=== PATIENT | female | born 1930 | race Caucasian/White ===

== ENCOUNTER 2016-07-15 07:06 | Observation (INO) | payer MEDICARE, BC ==
[2016-07-15] MEDS ORDERED: IOPAMIDOL 300 (61%) 100 ML VIAL IV ONE (07:07)
[2016-07-15 07:42] LABS: URINE BILIRUBIN NEGATIVE (NEGATIVE); URINE BLOOD NEGATIVE (NEGATIVE); URINE GLUCOSE (UA) NEGATIVE (NEGATIVE); URINE LEUKOCYTE ESTERASE NEGATIVE (NEGATIVE); URINE NITRITE NEGATIVE (NEGATIVE); URINE PROTEIN NEGATIVE (NEGATIVE); URINE UROBILINOGEN NORMAL (0-1 mg/dl)
[2016-07-15 07:43] LABS: URINE APPEARANCE CLEAR; URINE COLOR YELLOW
[2016-07-15 08:33] LABS: ABSOLUTE NEUTROPHIL COUNT 4.6 K/mm3 (1.8-7.7); BASO % 0.2 % (0.2-1.0); EOS # 0.1 (0.0-0.5); EOS % 0.9 % (0.9-2.9); HEMATOCRIT 43.2 % (37.0-47.0); HEMOGLOBIN 14.9 gm/l (12.0-16.0); IMM NEUT% 0.4 % (0-1); LYMPH # 0.5 (1.0-4.8); LYMPH % 8.5 % (15-45); MEAN CELL VOLUME 88.2 fl (81.0-99.0); MEAN CORPUSCULAR HEMOGLOBIN 30.4 pg (27.0-31.0); MEAN CORPUSCULAR HGB CONC 34.5 g/dl (33.0-37.0); MEAN PLATELET VOLUME 9.5 fl (7.4-10.4); MONO # 0.4 (0.0-0.8); MONO % 7.6 % (4-12); NEUT % 82.4 % (43-75); PLATELET COUNT 226 K/mm3 (130-400); RED CELL DISTRIBUTION WIDTH 14.1 % (11.5-14.5)
--- NOTE | 2016-07-15 09:53 | CT ---
CT ABDOMEN AND PELVIS WITH CONTRAST HISTORY: Back and abdominal pain. TECHNIQUE: Following intravenous administration of 100 mL Isovue-300, contiguous axial images were acquired from the lung bases to the ischial tuberosities. Oral contrast was not administered. COMPARISON: 06/12/2005 FINDINGS: LUNG BASES: Small right pleural effusion with right basal fibrotic atelectatic change. HEART: Cardiomegaly, evidence of pacer placement. LIVER: Mildly lobulated contour without dominant enhancing lesion. 7 mm cystic focus anteriorly. SPLEEN: Small calcification compatible with prior granulomatous exposure. 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 Borderline prominence of pancreatic duct. ADRENAL GLANDS: Redemonstration of left adrenal nodule measuring 1.4 cm in size, unchanged. KIDNEYS: Apparent solid mass lesion of the right kidney with heterogeneous enhancement 3.0 x 2.4 x 2.8 cm, worrisome for renal cell carcinoma. Right-sided pelviectasis without ureteral dilatation. GALLBLADDER: Present, minor wall enhancement. BOWEL: Moderately extensive fecal loading. Descending and sigmoid colonic diverticulosis without diverticulitis. No gross small bowel dilatation. Nonspecific mild diffuse mesenteric edema. APPENDIX: Normal gas-filled appendix. PELVIC ORGANS: No gross mass effect. FREE FLUID: No gross free fluid identified. ABDOMINOPELVIC LYMPH NODES: No abnormally enlarged lymph nodes identified. ABDOMINAL AORTA: Moderate atherosclerotic calcifications of the aortoiliac tree without aneurysmal dilatation. OSSEOUS STRUCTURES: Gression of compression deformity at the L2 level compared to plain film series of 06/25/2016, now moderately severe. There is mild retropulsion of the posterior-superior corner and moderate canal stenosis at this level. Findings of lumbar spondylosis with moderate canal stenosis at L3-4, severe canal stenosis at L4-5. IMPRESSION: 1. Subacute compression fracture L2 with increase in compression deformity since 06/25/2016, with minor associated retropulsion, moderate canal stenosis at this level. Additional changes of lumbar spondylosis with multilevel canal stenosis, severe at the L4-5 level. 2. 3.0 cm right inferior renal pole mass lesion, worrisome for renal cell carcinoma. 3. Small right pleural effusion. 4. Sigmoid colonic diverticulosis without diverticulitis. Nonobstructive appearance of bowel. Minor mesenteric edema of uncertain clinical significance, perhaps related to enteritis. 5. Mildly lobulated appearance of the liver with stable lesions of the pancreatic body, splenic artery, and left adrenal gland. 6. Cardiomegaly with evidence of pacer replacement. Findings discussed with Dr. Saeed of the Emergency Medicine clinical service on 07/15/2016 at 0950 hours.
[2016-07-15] MEDS ORDERED: ONDANSETRON 4 MG ODT TAB ONE (10:15)
[2016-07-15] MEDS ORDERED: OXYCODONE/ACETAMINOPHEN 5/325 MG TABLET ONE (10:15)
[2016-07-15] MEDS ORDERED: BISACODYL 5 MG TABLET.EC PO PRN (12:51)
[2016-07-15] MEDS ORDERED: SODIUM CHLORIDE 0.9% 100 ML IV PRN (12:51)
[2016-07-15] MEDS ORDERED: MENTHOL/CETYLPYRD 1 EACH LOZENGE PO PRN (12:51)
[2016-07-15] MEDS ORDERED: BLISTEX LIPSTICK 1 EACH TP PRN (12:51)
[2016-07-15] MEDS ORDERED: BISACODYL 10 MG SUP PR PRN (12:51)
[2016-07-15] MEDS ORDERED: ACETAMINOPHEN 325 MG TABLET PO PRN (12:51)
[2016-07-15] MEDS ORDERED: MAGNESIUM HYDROXIDE 30 ML UDCUP PO PRN (12:51)
[2016-07-15] MEDS ORDERED: FLUOCINONIDE 0.05% TP PRN (12:58)
[2016-07-15] MEDS ORDERED: PANTOPRAZOLE SODIUM 40 MG VIAL IV SCH (13:00)
[2016-07-15] MEDS ORDERED: HYDROCODONE /APAP 2.5 MG/108 MG PER 5 ML UDCUP ONE (13:32)
[2016-07-15] MEDS ORDERED: PUMP TUBING ONE (13:33)
[2016-07-15] MEDS: SODIUM CHLORIDE 0.9% 1,000 ML IV SCH (13:40)
[2016-07-15] MEDS: HYDROCODONE /APAP 2.5 MG/108 MG PER 5 ML UDCUP PO PRN ×2 (13:41→21:23)
[2016-07-15] MEDS: ACETAMINOPHEN 325 MG TABLET PO SCH ×3 (13:41→21:22)
[2016-07-15 13:54] VITALS: BMI 18.2
--- NOTE | 2016-07-15 16:17 | HP ---
ALEXANDREA DIAZ : 1930 DATE OF ADMISSION: July 15, 2016 CHIEF COMPLAINT: Pain. HISTORY OF PRESENT ILLNESS: Patient has a lumbar compression fracture diagnosed early June, and she said she started developing pain around [place] and had the compression fracture diagnosed at her primary care office in early June. Since then she has had increasing pain, nausea. She was not tolerating the pain medications, and then she started decreasing her oral intake and has been nauseous. She self catheterizes since 1976 so she cannot attribute any difficulties with urination or bowel movement to this compression fracture. Due to her uncontrolled pain and inability to take pain medications, her ability to perform activities of daily living has become severely decreased. She is being admitted to the hospital for pain management and ongoing therapies. In review of imaging with the family, they are aware of a renal mass. They are being followed by Dr. Kaur in [place] for this and will return for further evaluation. REVIEW OF SYSTEMS: GENERAL: No fevers, chills. HEENT: No throat pain, congestion. CARDIOVASCULAR: No chest pain or pressure. RESPIRATORY: No difficulty in breathing, no shortness of breath. ABDOMEN: Nausea, no abdominal pain. She has constipation. GENITOURINARY: Self catheterizes due to neurogenic bladder. MUSCULOSKELETAL: Back pain. NEUROLOGIC: No numbness or tingling, lightheadedness or dizziness. PSYCHIATRIC: She is distressed due to her pain. PAST MEDICAL HISTORY: Includes: 1. Anemia. 2. Chronic kidney disease stage 3. 3. Coronary artery disease. 4. Hyperlipidemia. 5. Hypertension. 6. Neurogenic bladder. 7. Osteoporosis. 8. Pemphigoid bullous. 9. History of atrial fibrillation. MEDICATIONS: Include: 1. Ciprofloxacin for a recent urinary tract infection. 2. Fluocinonide. 3. Vitamin C. 4. Tylenol. 5. Aspirin. 6. Ferrous gluconate. 7. Dorzolamide eyedrops. 8. Vitamin D3. 9. Xalatan eyedrops. 10. Ranitidine. 11. Lovastatin. ALLERGIES: NO KNOWN ALLERGIES. PAST SURGICAL HISTORY: 1. She has a pacemaker. 2. She has had an orthopedic fracture. SOCIAL HISTORY: Patient lives independently at [facility]. She is a nonsmoker. FAMILY MEDICAL HISTORY: Noncontributory. PHYSICAL EXAM: GENERAL: The patient is awake and alert but distressed due to pain. She cannot find a comfortable position. She is cachectic appearing, very thin. VITAL SIGNS: Temperature 97.8, heart rate 84, blood pressure 140/76. She is saturating 98% on room air. HEENT: Normocephalic, atraumatic. No tenderness to palpation and mucous membranes are slightly dry. Pupils are equal, round, and reactive. Extraocular muscles are intact. No scleral icterus or conjunctival injection. NECK: Supple, trachea is midline. RESPIRATORY: Clear to auscultation bilaterally. No rhonchi, wheezing or crackles. CARDIOVASCULAR: Positive S1 and S2. It is regular. She has palpable pulses bilaterally radially and posterior tibial. ABDOMEN: Soft, nontender, no distension, no rebound or guarding. MUSCULOSKELETAL: She is moving her upper and lower extremities without difficulty. They are nontender. She has tenderness down her lumbar spine. NEUROLOGIC: She is alert and oriented. LABORATORIES: Sodium 130, potassium 3.6, chloride 93, BUN 12, creatinine 1.0. White blood count 5.6, hemoglobin 14.9, hematocrit of 43.2 with a platelet count of 226. Urinalysis was yellow, clear, negative for protein, glucose, ketones, leukocyte esterase or nitrites. DIAGNOSTIC IMAGING: A CT abdomen and pelvis was obtained and it shows subacute compression fracture of L2 with an increase in the compression deformity since x-ray on June 25, 2016. There is minor associated retropulsion with moderate canal stenosis and additional lumbar spondylosis and multilevel canal stenosis, severe at L4/L5. She has a 3.0 cm right inferior renal pole mass lesion worrisome for renal cell carcinoma. There is a small right pleural effusion. Sigmoid colonic diverticulosis, nonobstructive. Mildly lobulated appearance of the liver with stable lesions on the pancreatic body, splenic artery and left adrenal gland and cardiomegaly. ASSESSMENT: This is an 86-year-old female with intractable pain secondary to a lumbar compression fracture that is progressing. PLAN: 1. Lumbar compression fracture. Patient is being admitted for pain control, physical therapy and occupational therapy evaluation and assistance with activities of daily living and determination of appropriate placement. 2. Anemia secondary to chronic disease and poor oral intake. Will monitor. 3. Chronic kidney disease stage 3, stable. We will dose adjust medications as needed. 4. Coronary artery disease. We will continue her on her home medications. 5. Hyperlipidemia. Continue home medications. 6. Hypertension. Continue her home medications. 7. Neurogenic bladder. Per patient's preference, she can continue to self catheterize or have a Harrison placed. 8. Pemphigoid bullous. We will continue her home steroid cream. 9. Patient is a DO NOT RESUSCITATE/DO NOT INTUBATE per her wishes today verbally. We will have to update her POLST information. Cc: Rodrigo Woods M.D.
[2016-07-15 18:36] LABS: ALB/GLOB RATIO 1.7 (>1.0); ALBUMIN 3.5 gm/dL (3.5-5.7)
[2016-07-15] MEDS: PREDNISONE 1 MG TABLET PO SCH (21:22)
[2016-07-15] MEDS: DOCUSATE SODIUM 100 MG CAPSULE PO SCH (21:22)
[2016-07-16] MEDS: SODIUM CHLORIDE 0.9% 1,000 ML IV SCH ×2 (03:15→16:43)
[2016-07-16] MEDS: HYDROCODONE /APAP 2.5 MG/108 MG PER 5 ML UDCUP PO PRN ×4 (03:16→22:41)
[2016-07-16] MEDS: LATANOPROST 0.005% 50 GTTS/2.5 ML BOT SOLN.DROP OU SCH ×2 (09:30→09:56)
[2016-07-16] MEDS: DOCUSATE SODIUM 100 MG CAPSULE PO SCH ×2 (09:30→22:29)
[2016-07-16] MEDS: PREDNISONE 1 MG TABLET PO SCH ×2 (09:30→22:28)
[2016-07-16] MEDS: DORZOLAMIDE 2% 200 GTTS/10 ML BOT SOLN.DROP OU SCH ×2 (09:30→09:49)
[2016-07-16] MEDS: ACETAMINOPHEN 325 MG TABLET PO SCH ×3 (09:31→22:28)
[2016-07-16] MEDS: ASPIRIN (ENTERIC COATED) 81 MG TABLET.EC PO SCH (09:31)
[2016-07-16] MEDS: LOVASTATIN 20 MG TABLET PO SCH (09:31)
--- NOTE | 2016-07-16 11:08 | PDOC43 ---
- Subjective Chief Complaint: pain Patient awake and alert with family at bedside. She developed a bloody nose working with therapy, once she stood up. There is no pain with this and the bleeding is letting up. Her pain is improved when she is not moving. Family is interested in ICF/SNIF. Subjective: Reports Pain Tolerable, Reports Tolerating Diet Well, Reports Other (back pain, epsitaxis), Denies Adequate Oral Intake, Denies Chest Pain, Denies Abdominal Pain, Denies Nausea, Denies Vomiting - Objective Vital Signs Temperature 98.2 F 07/16/16 08:05 Pulse Rate 88 07/16/16 08:05 Respiratory Rate 16 07/16/16 08:05 Blood Pressure 148/79 07/16/16 08:05 O2 Saturation by Pulse Oximetry 95 07/16/16 08:05 Oxygen Delivery Method Room Air Oxygen Flow Rate 0 Intake and Output 07/14/16 07/15/16 07/16/16 23:59 23:59 23:59 Intake Total 1618 Output Total 1025 Balance 593 General: Alert, Oriented x3, Cooperative, Other (cachexic), No Acute Distress HEENT: Atraumatic, PERRLA, EOMI, Mucous membr. moist/pink, Other (epsitaxis left nostril) Lungs: Clear to Auscultation Bilaterally, Normal Air Movement Cardiovascular: Regular Rate and Rhythm, Normal S1, Normal S2 Abdomen: Soft, Non-Distended, No Rigid, No Tenderness, No Rebounding Extremities: No Cyanosis, No Edema, No Tenderness Neurological: Normal Speech Psych/Mental Status: Normal Mood Laboratory 07/16/16 05:30 07/16/16 05:30 Calcium 8.0 L Current Medications: Current meds reviewed in EMR. - Problems: Assessment/Plan (1) Compression fracture of L2 lumbar vertebra Status: Acute Assessment/Plan: Subacute, Patient with known osteoporosis and chronic steroid use. PT, pain management. ICF/SNIF plan for DC (2) Anterior epistaxis Status: Acute Assessment/Plan: left nostril, presumed dry air. Bleeding resolving with pressure, monitor (3) Hyponatremia Status: Acute Assessment/Plan: sodium low on presentation, 131, has dipped to 128 overnight. Encourage PO intake, gentle fluid hydration (4) Cachexia Status: Chronic Assessment/Plan: 2nd to chronic disease, poor PO intake, BMI 18 (5) Anemia Qualifiers: Anemia type: other cause Other causes of anemia: chronic disease, kidney Qualifier Code: (N18.9) Chronic kidney disease, unspecified Status: Chronic Assessment/Plan: monitor (6) CKD (chronic kidney disease), stage III Status: Chronic Assessment/Plan: stable dose adjust medication (7) CAD (coronary artery disease) Qualifiers: Coronary Disease-Associated Artery/Lesion type: [place] artery [place] vs. transplanted heart: [place] heart Associated angina: without angina Qualifier Code: (I25.10) Atherosclerotic heart disease of [place] coronary artery without angina pectoris Status: Chronic Assessment/Plan: stable (8) Hyperlipemia Qualifiers: Hyperlipidemia type: mixed hyperlipidemia Qualifier Code: (E78.2) Mixed hyperlipidemia Status: Chronic Assessment/Plan: stable, continue statin (9) Hypertension Qualifiers: Hypertension type: essential hypertension Qualifier Code: (I10) Essential (primary) hypertension Status: Chronic Assessment/Plan: stable (10) Neurogenic bladder Status: Chronic Assessment/Plan: self-caths, with L2 compression fracture castaneda for comfort (11) Osteoporosis Status: Chronic Assessment/Plan: contributed to compression fracture (12) Bullous pemphigoid Status: Chronic Assessment/Plan: chronic steroid use, continue with medications Disposition: SNIF/ICF in day
[2016-07-16] MEDS: PANTOPRAZOLE SODIUM 40 MG VIAL IV SCH (13:11)
--- NOTE | 2016-07-16 16:06 | PDOC43 ---
- Subjective Chief Complaint: pain Patient lying in bed, notes some pain with movement. Notes she feels like her pacemaker is not acting right, but declines getting an EKG. Mateusz PO well. No GI c /o. - Objective Vital Signs Temperature 98.2 F 07/16/16 08:05 Pulse Rate 88 07/16/16 08:05 Respiratory Rate 16 07/16/16 13:00 Blood Pressure 148/79 07/16/16 08:05 O2 Saturation by Pulse Oximetry 95 07/16/16 08:05 Oxygen Delivery Method Room Air Oxygen Flow Rate 0 Vital Signs Last 12 Hours Temp Pulse Resp BP Pulse Ox 07/16/16 13:00 16 07/16/16 08:05 98.2 F 88 16 148/79 95 07/16/16 08:00 16 07/16/16 06:00 16 07/16/16 04:12 98.2 F 92 18 146/90 94 Intake and Output 07/14/16 07/15/16 07/16/16 23:59 23:59 23:59 Intake Total 1618 Output Total 1025 Balance 593 General: Other (lying in bed, [place], answers questions) Lungs: Clear to Auscultation Bilaterally Cardiovascular: Other (mostly regular rhythm) Abdomen: Soft, Normal Bowel Sounds, Non-Distended Extremities: No Edema Skin: Normal Color Neurological: Normal Speech Psych/Mental Status: Anxious Laboratory 07/16/16 05:30 07/16/16 05:30 Calcium 8.0 L Current Medications: Current meds reviewed in EMR. Active Medications Acetaminophen (Tylenol) 650 mg PO Q6H PRN PRN Reason: Pain or Temperature > 100.5 F Acetaminophen (Tylenol) 325 mg PO TID [facility] Last Admin: 07/16/16 15:17 Dose: 325 mg Aspirin (Ecotrin) 81 mg PO DAILY [facility] Last Admin: 07/16/16 09:31 Dose: 81 mg Benzocaine/Menthol (Cepacol) 1 each PO PRN PRN PRN Reason: Sore Throat Bisacodyl (Dulcolax) 10 mg AL DAILY PRN PRN Reason: Constipation Bisacodyl (Dulcolax) 5 mg PO DAILY PRN PRN Reason: Constipation Docusate Sodium (Colace) 100 mg PO BID [facility] Last Admin: 07/16/16 09:30 Dose: 100 mg Dorzolamide/Timolol (Cosopt Ophth Soln) 0 gtts OU BID [facility] Fluocinonide (Lidex) 1 applic TP BID PRN PRN Reason: Itching Last Admin: 07/16/16 10:53 Dose: 1 applic Sodium Chloride (Sodium Chloride 0.9%) 100 mls @ 25 mls/hr IV PRN PRN PRN Reason: Flush Sodium Chloride (Sodium Chloride 0.9%) 1,000 mls @ 75 mls/hr IV .[id number] [facility] Last Admin: 07/16/16 03:15 Dose: 75 mls/hr Latanoprost (Xalatan) 0 gtts OU QPM [facility] Lovastatin (Mevacor) 20 mg PO DAILY [facility] Last Admin: 07/16/16 09:31 Dose: 20 mg Magnesium Hydroxide (Milk Of Magnesia) 30 ml PO DAILY PRN PRN Reason: Constipation Ondansetron HCl (Zofran Odt) 4 mg PO Q6H PRN PRN Reason: Nausea/Vomiting Pantoprazole Sodium (Protonix) 40 mg IV Q24H [facility] Last Admin: 07/16/16 13:11 Dose: 40 mg Petrolatum/Paraffin/Mineral Oil (Blistex) 1 each TP PRN PRN PRN Reason: Dry and/or chapped lips Prednisone (Prednisone) 2 mg PO BID [facility] Last Admin: 07/16/16 09:30 Dose: 2 mg Sodium Chloride (Normal Saline 10ml Flush) 10 - 50 ml IV PRN PRN PRN Reason: IV Flush Last Admin: 07/15/16 13:40 Dose: 10 ml Sodium Chloride (Normal Saline 10ml Flush) 10 - 50 ml IV Q8HR [facility] Last Admin: 07/16/16 13:11 Dose: 10 ml - Problems: Assessment/Plan (1) Compression fracture of L2 lumbar vertebra Status: Acute Assessment/Plan: Subacute, Patient with known osteoporosis and chronic steroid use. Appreciate OT/PT, pain management. ICF/SNF plan for DC 07/17, [facility] or [facility]; family will be responding with their preference later today. (2) Osteoporosis Status: Chronic Assessment/Plan: contributed to compression fracture. Follow up outpt. (3) Bullous pemphigoid Status: Chronic Assessment/Plan: chronic steroid use, continue with medications VTE Prophylaxis: mechanical tx Disposition: SNF/ICF, poss 07/17; appreciate family input.
[2016-07-16] MEDS: ONDANSETRON 4 MG ODT TAB PO PRN (16:46)
[2016-07-16] MEDS ORDERED: LATANOPROST 0.005% 50 GTTS/2.5 ML BOT SOLN.DROP OU SCH (20:00)
[2016-07-16] MEDS ORDERED: LORAZEPAM 0.5 MG TABLET PO ONE (20:41)
[2016-07-16] MEDS: DORZOLAMIDE OU SCH (21:00)
[2016-07-16] MEDS: TIMOLOL OU SCH (21:00)
[2016-07-17] MEDS: HYDROCODONE /APAP 2.5 MG/108 MG PER 5 ML UDCUP PO PRN ×2 (05:29→14:55)
[2016-07-17] MEDS: SODIUM CHLORIDE 0.9% 1,000 ML IV SCH (05:32)
[2016-07-17 05:41] LABS: HEMATOCRIT 40.2 % (37.0-47.0); HEMOGLOBIN 13.4 gm/l (12.0-16.0); MEAN CELL VOLUME 91.2 fl (81.0-99.0); MEAN CORPUSCULAR HEMOGLOBIN 30.4 pg (27.0-31.0); MEAN CORPUSCULAR HGB CONC 33.3 g/dl (33.0-37.0); RED CELL DISTRIBUTION WIDTH 14.2 % (11.5-14.5)
[2016-07-17 06:15] LABS: CALCIUM 7.8 mg/dL (8.6-10.3)
[2016-07-17] MEDS: ASPIRIN (ENTERIC COATED) 81 MG TABLET.EC PO SCH (09:51)
[2016-07-17] MEDS: ACETAMINOPHEN 325 MG TABLET PO SCH ×2 (09:51→14:55)
[2016-07-17] MEDS: LOVASTATIN 20 MG TABLET PO SCH (09:51)
[2016-07-17] MEDS: PREDNISONE 1 MG TABLET PO SCH (09:51)
[2016-07-17] MEDS: DOCUSATE SODIUM 100 MG CAPSULE PO SCH (09:52)
[2016-07-17] MEDS: DORZOLAMIDE OU SCH (09:55)
[2016-07-17] MEDS: TIMOLOL OU SCH (09:55)
--- NOTE | 2016-07-17 11:40 | DS ---
Nat Bojorquez ADMIT DATE: 07/15/2016 DISCHARGE DATE: 07/17/2016 ADMIT DIAGNOSES: 1. Intractable pain secondary to subacute lumbar compression fracture. 2. Chronic anemia at baseline. 3. Chronic kidney disease stage III at baseline. 4. Neutropenic bladder with continued self catheterization at baseline. 5. Bullous phemphigoid at baseline. Patient continues on chronic prednisone therapy. DISCHARGE DIAGNOSES: 1. Intractable pain secondary to subacute lumbar compression fracture. 2. Chronic anemia at baseline. 3. Chronic kidney disease stage III at baseline. 4. Neutropenic bladder with continued self catheterization at baseline. 5. Bullous phemphigoid at baseline. Patient continues on chronic prednisone therapy. ADMIT HISTORY AND PHYSICAL: Please see Dr. uSe's note for details. Briefly, Ms. Bojorquez is an 86-year-old female with longstanding prednisone use secondary to bullous phemphigoid. She was diagnosed with an L2 compression fracture earlier this month. Over the last few weeks prior to admission she had increasing pain to the point that it became intractable. She was brought to the emergency room on the day of admission due to intractable pain and was found to have continued L2 compression fracture. It did seem to have progressed a bit since her previous imaging. She was admitted to the hospitalist service for pain control, physical therapy, occupational therapy, and to arrange placement. HOSPITAL COURSE: She remained stable throughout her hospitalization. By day of discharge she was doing slightly better. She was getting good pain relief from liquid Lortab and we have elected to discharge her to [facility] pending bed placement at her nursing home facility of choice. DISCHARGE MEDICATIONS: 1. Lortab Elixir 2.5/108 mg per 5 mL, 10 to 20 mL by mouth every four hours as needed sufficient x14 days. 2. Zofran ODT 4 mg sublingual as needed for nausea. All other medications prior to admit as follows: 1. Flecainide 0.05% cream applied twice daily. 2. Tylenol three times daily as needed. 3. Aspirin 81 mg by mouth daily. 4. Vitamin C 500 mg by mouth daily. 5. Calcium with vitamin D 1 by mouth three times daily. 6. Dorzolamide/Timolol eye drops as prior to admit. 7. Ferrous gluconate 65 mg by mouth daily. 8. Xalatan eyes drops as prior to admit. 9. Lovastatin 20 mg by mouth daily. 10. Prednisone 2 mg by mouth twice daily. 11. Ranitidine 150 by mouth twice daily. 12. Trimethoprim 100 mg by mouth daily for urinary tract infection prophylaxis. DISCHARGE FOLLOW UP: Will be with Dr. Dwain Woods in the next 1 to 2 weeks as scheduled. JOB: [id number] CC: Dr. Dwain Woods
[2016-07-17] MEDS: PANTOPRAZOLE SODIUM 40 MG VIAL IV SCH (13:24)
[2016-07-17 14:29] VITALS: BP 143/96
[2016-07-17] MEDS: ONDANSETRON 4 MG ODT TAB PO PRN (14:55)
== END 2016-07-17 16:20 ==
LOC: ED 07:06 → MS 11:29 → INTOOBSV 11:29
PROVIDERS: ADMIT Family Medicine; ATTEND Family Medicine
DX: M48.56XA Collapsed vertebra, not elsewhere classified, lumbar region, initial encounter for fracture (principal); I12.9 Hypertensive chronic kidney disease with stage 1 through stage 4 chronic kidney disease, or unspecified chronic kidney disease; N18.3 Chronic kidney disease, stage 3 (moderate); Z95.0 Presence of cardiac pacemaker; D63.1 Anemia in chronic kidney disease; I25.10 Atherosclerotic heart disease of native coronary artery without angina pectoris; E78.5 Hyperlipidemia, unspecified; N31.9 Neuromuscular dysfunction of bladder, unspecified; Z66 Do not resuscitate; R04.0 Epistaxis; E87.1 Hypo-osmolality and hyponatremia; M81.0 Age-related osteoporosis without current pathological fracture; L12.0 Bullous pemphigoid
CPT/HCPCS: 83690; 85027; 85025; 87086; 80048 ×2; 80047; 80053; 81003; 36415 ×2; 74177; 97530; 97161; 97535; 97165; 99285 ×2; 51701; 96376 ×2; 96375; A9270 ×26; C9113 ×3; J7030 ×4; Q9967; G0378 ×2; G8987; G8988; G8978; G8979

== ENCOUNTER 2016-07-21 14:14 | Inpatient (IN) | payer MEDICARE, BC ==
[2016-07-21] MEDS ORDERED: NITROGLYCERIN/D5W 25 MG/250 ML 250 ML IV ONE (14:30)
[2016-07-21] MEDS ORDERED: MIDAZOLAM HCL 1 MG/ML 2ML VIAL ONE (14:47)
[2016-07-21 14:57] LABS: URINE BILIRUBIN 1+ (NEGATIVE); URINE BLOOD 1+ (NEGATIVE); URINE GLUCOSE (UA) NEGATIVE (NEGATIVE); URINE LEUKOCYTE ESTERASE 1+ (NEGATIVE); URINE NITRITE NEGATIVE (NEGATIVE); URINE PROTEIN 1+ (NEGATIVE); URINE UROBILINOGEN NORMAL (0-1 mg/dl)
[2016-07-21 15:07] LABS: URINE APPEARANCE HAZY; URINE COLOR YELLOW
[2016-07-21 15:08] LABS: ABSOLUTE NEUTROPHIL COUNT 8.6 K/mm3 (1.8-7.7); BASO % 0.2 % (0.2-1.0); HEMATOCRIT 41.2 % (37.0-47.0); HEMOGLOBIN 14.1 gm/l (12.0-16.0); IMM NEUT # 0.1 K/mm3 (0-0.2); IMM NEUT% 0.9 % (0-1); LYMPH # 0.2 (1.0-4.8); LYMPH % 1.8 % (15-45); MEAN CELL VOLUME 89.4 fl (81.0-99.0); MEAN CORPUSCULAR HEMOGLOBIN 30.6 pg (27.0-31.0); MEAN CORPUSCULAR HGB CONC 34.2 g/dl (33.0-37.0); MEAN PLATELET VOLUME 9.7 fl (7.4-10.4); MONO # 0.4 (0.0-0.8); NEUT % 93.1 % (43-75); PLATELET COUNT 246 K/mm3 (130-400); RED CELL DISTRIBUTION WIDTH 14.3 % (11.5-14.5); URINE BACTERIA 1+; URINE MUCUS 1+; URINE OTHER MANY BUDDING YEAST
[2016-07-21 15:09] LABS: URINE EPITHELIAL CELLS MODERATE /hpf
[2016-07-21 15:14] LABS: CKMB ISOENZYME 11.5 ng/ml (0.6-6.3)
[2016-07-21 15:15] LABS: ALB/GLOB RATIO 1.2 (>1.0); ALBUMIN 3.2 gm/dL (3.5-5.7); CALCIUM 9.3 mg/dL (8.6-10.3); MAGNESIUM 2.6 mg/dL (1.9-2.7)
[2016-07-21 15:20] LABS: VENOUS BLOOD GAS BASE EXCESS -1.8 mmol/L (-2.0-2.0); VENOUS BLOOD GAS HCO3 24.7 mmol/L (22.0-27.0)
[2016-07-21 15:25] LABS: TROPONIN I 0.51 ng/ml (0.0-0.06)
--- NOTE | 2016-07-21 15:30 | RAD ---
Exam: Portable chest COMPARISON: CT 07/15/2016 and chest radiograph 04/13/2015 INDICATION: Dyspnea. FINDINGS: A semierect AP portable view of the chest demonstrates bilateral pleural effusions, left greater than right, which are new since the 2015 chest radiograph and definitely increased since the 07/15/2016 CT; that CT demonstrated a tiny right-sided pleural effusion and no left-sided pleural effusion. Cardiomegaly is obscured by the effusions. Dual-lead pacer is again noted. Central pulmonary vascular congestion is present. Osteopenia; bones of the chest wall appear intact. IMPRESSION: Findings most compatible with congestive heart failure with bilateral pleural effusions. The left-sided pleural effusion is new and the right-sided pleural effusion has definitely increased since the 07/15/2016 CT abdomen. Cardiomegaly is obscured by the effusions.
[2016-07-21] MEDS ORDERED: FUROSEMIDE 40 MG/4 ML VIAL ONE (15:32)
[2016-07-21 16:06] LABS: BAND 16 % (0-10); BASOPHIL 0 % (0-1); EOSINOPHIL 0 % (1-3); LYMPHOCYTE 3 % (15-45); MONOCYTE 3 % (4-12); NEUTROPHILS 78 % (43-75); PLATELET ESTIMATE NORMAL (NORMAL); TOTAL CELLS COUNTED 100
[2016-07-21] MEDS ORDERED: SODIUM CHLORIDE 0.9% 100 ML IV PRN (17:05)
[2016-07-21] MEDS ORDERED: NITROGLYCERIN/D5W 25 MG/250 ML 250 ML IV PRN (17:05)
[2016-07-21] MEDS ORDERED: MENTHOL/CETYLPYRD 1 EACH LOZENGE PO PRN (17:05)
[2016-07-21] MEDS ORDERED: ACETAMINOPHEN 325 MG TABLET PO PRN (17:05)
[2016-07-21] MEDS ORDERED: BISACODYL 5 MG TABLET.EC PO PRN (17:05)
[2016-07-21] MEDS ORDERED: BLISTEX LIPSTICK 1 EACH TP PRN (17:05)
[2016-07-21] MEDS ORDERED: BISACODYL 10 MG SUP PR PRN (17:05)
[2016-07-21] MEDS ORDERED: MAGNESIUM HYDROXIDE 30 ML UDCUP PO PRN (17:05)
[2016-07-21 17:12] VITALS: BMI 20.6
[2016-07-21] MEDS ORDERED: FLUOCINONIDE 0.05% TP PRN (20:01)
[2016-07-21] MEDS ORDERED: ONDANSETRON 4 MG ODT TAB PO PRN (20:01)
[2016-07-21 20:04] LABS: OSMOLALITY 260; OSMOLALITY,URINE 423
[2016-07-21] MEDS ORDERED: HYDROCODONE/ACETAMINOPHEN 5/325MG TABLET PO PRN (20:05)
[2016-07-21] MEDS: NITROGLYCERIN/D5W 25 MG/250 ML 250 ML IV PRN ×2 (20:34→23:58)
[2016-07-21 20:53] LABS: CALCIUM 8.5 mg/dL (8.6-10.3)
[2016-07-21] MEDS: ENOXAPARIN SODIUM 30 MG/0.3 ML SYRINGE SUB-Q SCH (20:53)
[2016-07-21] MEDS: LATANOPROST 0.005% 50 GTTS/2.5 ML BOT SOLN.DROP OU SCH (20:54)
[2016-07-21] MEDS: DOCUSATE SODIUM 100 MG CAPSULE PO SCH (20:57)
[2016-07-21] MEDS: SENNOSIDES 8.6 MG TABLET PO SCH (20:57)
[2016-07-21] MEDS: ASPIRIN (UNCOATED) 325 MG TABLET PO SCH (20:58)
[2016-07-21] MEDS: ACETAMINOPHEN 325 MG TABLET PO SCH (20:59)
[2016-07-21] MEDS: POLYETHYLENE GLYCOL 3350 17 G POWD.SUSP PO SCH (21:57)
[2016-07-21] MEDS ORDERED: FUROSEMIDE 40 MG/4 ML VIAL IV ONE (22:00)
[2016-07-22 06:05] LABS: ABSOLUTE NEUTROPHIL COUNT 6.3 K/mm3 (1.8-7.7); BASO # 0.1 K/mm3 (0.0-0.2); BASO % 0.7 % (0.2-1.0); HEMOGLOBIN 12.9 gm/l (12.0-16.0); IMM NEUT% 0.4 % (0-1); LYMPH # 0.1 (1.0-4.8); LYMPH % 1.8 % (15-45); MEAN CELL VOLUME 87.1 fl (81.0-99.0); MEAN CORPUSCULAR HEMOGLOBIN 30.4 pg (27.0-31.0); MEAN CORPUSCULAR HGB CONC 34.9 g/dl (33.0-37.0); MEAN PLATELET VOLUME 10.3 fl (7.4-10.4); MONO # 0.3 (0.0-0.8); MONO % 4.8 % (4-12); NEUT % 92.3 % (43-75); PLATELET COUNT 175 K/mm3 (130-400); RED CELL DISTRIBUTION WIDTH 14.1 % (11.5-14.5)
[2016-07-22 06:22] LABS: CALCIUM 8.4 mg/dL (8.6-10.3); CHOLESTEROL RISK RATIO 2.4 (3.7-5.6)
--- NOTE | 2016-07-22 06:49 | HP ---
Nat Bojorquez [id number] DATE OF ADMISSION: July 21, 2016 CHIEF COMPLAINT: Shortness of breath. HISTORY OF PRESENT ILLNES: The patient is an 86-year-old female recently hospitalized for uncontrolled pain from an L2 compression fracture discharged to [facility] on July 17 who developed acute onset shortness of breath symptoms during the middle of the day today. Family was contacted and she was transported to [facility] for further evaluation. While in the emergency department the patient had acute respiratory failure and was treated with Bi-PAP therapy. She had malignant hypertension associated with acute diastolic heart failure and was managed with a nitroglycerin drip. She was referred to the hospitalist service for admission. She had elevation of her troponin levels consistent with an non-ST elevation myocardial infarction. She also had marked hyponatremia and acute kidney injury. The patient is not very good at giving history due to hearing loss and her advanced age. The caregivers at the [facility] note that her symptoms came on suddenly today and were not associated with any chest pain or any acute complaints. She has had ongoing struggles with her back pain and constipation, but she had a bowel movement today. Her family feels like she may be slightly overmedicated and have noted that she has been a little somnolent the last couple of days. It is has been a struggle to manage her symptoms of pain, but she has done well at the facility up until today. REVIEW OF SYSTEMS: Negative for any fevers or chills. She has had no upper respiratory symptoms. She had the dyspnea as I mentioned today, but no reports of any chest pain. No lower extremity edema or palpitations have been reported. She has had no nausea or vomiting recently except for some nausea with her pain meds. She has had some ongoing abdominal pain associated with the compression fracture and her constipation which has unchanged. She has had low back pain. No new arthralgias. No new falls. No headache, fainting, blackouts, or seizures. No urinary complaints. Review of systems is otherwise negative. PAST MEDICAL HISTORY: Significant for history of a non-ST elevation myocardial infarction in 2008. She has had a history of chronic atrial fibrillation with sick sinus syndrome treated with pacemaker followed by [facility]. Her dual chamber pacemaker was placed in 2012. Angiogram in 2008 showed nonobstructive disease with a normal ejection fraction. Last echocardiogram 2013 showed an ejection fraction of 70% with moderate left ventricular hypertrophy. She has had a history of bullous phemphigoid managed with oral therapy and topical medicines. She has had chronic essential hypertension. She has had osteoporosis. She has a history of a neurogenic bladder of unclear etiology and generally performs self catheterizations, but has had a Harrison catheter since her last hospitalization just to assist with comfort management. She has had no recent hospitalizations except for her stay for her lumbar compression fracture as mentioned above. She has had a history of recurrent urinary tract infections. She has had a neurogenic bladder, but the cause of that is not clear as I mentioned above. She has been followed by Dr. Kaur with urology services. She also has a right renal mass followed by Dr. Kaur suspicious for a neoplasm which she has not been interested in biopsying at this time. She has also had some mild glaucoma and some osteoporosis and chronic hearing loss related to her advanced age. PAST SURGICAL HISTORY: Really nowhere documented except for a pacemaker placed as mentioned above. She has had a prior coronary angiogram as well that showed nonobstructive coronary disease in 2008. ALLERGIES: Patient has no known drug allergies. CURRENT MEDICATIONS: 1. Senna 17.2 mg twice daily. 2. Prednisone 1 mg daily. 3. Prilosec 20 mg daily. 4. Trimethoprim 100 mg daily. 5. Ranitidine 150 mg twice daily. 6. Zofran orally dissolving tablets 4 mg every 6 hours as needed for nausea. 7. Lovastatin 20 mg daily. 8. [place] 10/325 one every 6 hours scheduled. 9. Xalatan 0.005% eye drops two drops in each eye at bedtime. 10. Fluocinonide 0.05% ointment applied topically twice daily to rash as needed. 11. Dulcolax 10 mg as needed if no bowel movement in a 48 hour time frame. 12. Colace 100 mg daily. 13. Calcium with vitamin D 500/400 units one pill three times daily. 14. Enteric coated aspirin 81 mg daily. 15. Vitamin C 500 mg daily. 16. Tylenol 650 mg every 4 hours as needed for pain and 325 mg scheduled 3 times daily. FAMILY HISTORY: Noncontributory. SOCIAL HISTORY: Patient was living independently at the [facility] until she developed this compression fracture. She has 8 grown children, 7 live in the area, one lives in [place]. Sergey and Alyssa in [place]. A daughter Gennaro lives in [place]. Farooq lives in [place]. Ephraim lives in [place]. Sonu and Rachely Bradley in [place] and Arian in [place]. Patient has a POLST form indicating limited additional interventions with do not resuscitate status. She is . She is a nonsmoker. She has never been a drinker. Primary care provider is Dr. Rodrigo Woods. PHYSICAL EXAMINATION: VITALS: Body mass index 20.6, weight is 51.1 kg, temperature 97.6, pulse 79, blood pressure is currently 115/59 on a nitroglycerin drip at 150 mcg, respiratory rate is currently 15 down from 28, oxygen saturation is 96% on 6 liters. She has been weaned off of Bi-PAP at this time. Her blood pressures in the emergency department were extremely high when she was acutely presenting with readings as high as 235/199 which prompted the initiation of the nitroglycerin drip. GENERAL: This is a thin elderly female in moderate respiratory distress. HEENT: Shows moist pink oral mucosa. NECK: Shows trace jugular venous distention. LUNGS: Reveal bibasilar crackles. CARDIOVASCULAR: Reveals a regular rate and rhythm. No murmur. ABDOMEN: Mildly distended and mildly tender throughout with positive bowel sounds. No masses are palpable. EXTREMITIES: Show trace lower extremity edema. DIAGNOSTICS: Chest x-ray shows evidence of acute congestive heart failure with bilateral pleural effusions which appear new. EKG shows no ST elevation. LABORATORY STUDIES: Sodium was 117, potassium 5.6, carbon dioxide 23, BUN 44, creatinine is 1.8, glucose is 114, AST is 49, ALT is 65, troponin elevated at 0.51, CK-MB is 11.5. CBC shows a white count of 9.2, hemoglobin of 14.1, and platelet count of 246,000 with 16% bands, 78% neutrophils. Lactate was 1.7. Venous pH showed a pH of 7.32. Urinalysis showed 1+ bacteria, moderate epithelial cells, nitrite negative. ASSESSMENT AND PLAN: The patient has acute diastolic congestive heart failure with acute hypoxic respiratory failure treated with Bi-PAP therapy. She also has been managed with a nitroglycerin drip for malignant hypertension associated with the congestive heart failure. She has evidence of a non-ST elevation myocardial infarction. She has evidence of acute kidney injury. She has marked hyponatremia likely due to fluid overload, hyperkalemia likely due to acute kidney injury. She has atrial fibrillation currently paced and history of bullous phemphigoid which is stable. She has a history of a right renal mass suspicious for neoplasm. She is admitted to the intensive care unit for Bi-PAP therapy and nitroglycerin drip therapy. She will be diuresed with Lasix. We will get an echocardiogram, serial cardiac enzymes, and lipid profile in the morning. We will monitor electrolytes closely and her renal function. Further treatment and recommendations will depend on her hospital course. Venous thromboembolism risk is moderate. Mechanical measures have been prescribed, but will add Lovenox as well. JOB: [id number] CC: Dr. Rodrigo Woods
[2016-07-22 07:13] LABS: BAND 15 % (0-10); BASOPHIL 0 % (0-1); EOSINOPHIL 0 % (1-3); LYMPHOCYTE 1 % (15-45); MONOCYTE 2 % (4-12); NEUTROPHILS 82 % (43-75); PLATELET ESTIMATE NORMAL (NORMAL); TOTAL CELLS COUNTED 100
--- NOTE | 2016-07-22 08:24 | PDOC43 ---
[id number], Reports Cough (with white phlegm), Denies Chest Pain, Denies Vomiting, Denies Fever - Objective Vital Signs Temperature 97.9 F 07/22/16 07:00 Pulse Rate 79 07/22/16 07:00 Respiratory Rate 18 07/22/16 07:15 Blood Pressure 129/65 07/22/16 07:00 O2 Saturation by Pulse Oximetry 98 07/22/16 07:21 Oxygen Delivery Method Nasal Cannula Oxygen Flow Rate 3 Intake and Output 07/21/16 07/22/16 07/23/16 06:59 06:59 06:59 Intake Total 1215 Output Total 775 Balance 440 General: Alert, Moderate Distress HEENT: Mucous membr. moist/pink Lungs: Other (bibasilar rales) Cardiovascular: Regular Rate and Rhythm Abdomen: Soft, Normal Bowel Sounds, Non-Distended, No Tenderness Extremities: No Edema Skin: Warm, Dry, Intact Laboratory 07/22/16 05:15 07/22/16 05:15 07/22/16 07/21/16 05:15 20:28 BUN 42 H 43 H Estimated GFR 28 L 28 L Calcium 8.4 L 8.5 L Troponin I 0.20 H 0.30 H Cholesterol 115 L Cholesterol Risk Factr 2.4 L LDL Cholesterol 45 L Current Medications: Current meds reviewed in EMR. - Problems: Assessment/Plan (1) CHF (congestive heart failure) Qualifiers: Congestive heart failure type: diastolic Congestive heart failure chronicity: acute Qualifier Code: (I50.31) Acute diastolic (congestive) heart failure Status: Acute Assessment/Plan: associated with NSTEMI, last LVEF was 70%, ECHO pending, improving with Bipap and Lasix, last cath showed nonobstructive disease-manage medically (2) Hypertensive urgency Status: Acute Assessment/Plan: associated with flash pulmonary edema and acute diastolic CHF - improved with NTG drip, wean as pipo (3) Acute respiratory failure Qualifiers: Respiratory failure complication: hypoxia Qualifier Code: (J96.01) Acute respiratory failure with hypoxia Status: Acute Assessment/Plan: present on admit due to pulm edema, improved with Bipap-wean as pipo (4) Hyponatremia Status: Acute Assessment/Plan: chronic, markedly worse over past week, associated with fluid overload, CHF and acute renal failure, D/W nephrology-fluid restrict, diurese, add salt tablets and follow closely (5) CHAYO (acute kidney injury) Status: Acute Assessment/Plan: Cr was 0.8 on 07/17 now up to 1.8 (6) Hyperkalemia Status: Acute Assessment/Plan: improved from 5.6, likely due to acute kidney injury (7) Neurogenic bladder Status: Chronic Assessment/Plan: chronic with indwelling castaneda catheter (8) Pacemaker Status: Chronic Assessment/Plan: due to SSS-functioning well (9) Bullous pemphigoid Status: Chronic Assessment/Plan: on chronic low dose prednisone (10) CAD (coronary artery disease) Qualifiers: Coronary Disease-Associated Artery/Lesion type: [place] artery [place] vs. 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
[2016-07-22] MEDS: FUROSEMIDE 40 MG/4 ML VIAL IV SCH ×2 (08:47→15:14)
[2016-07-22] MEDS: ACETAMINOPHEN 325 MG TABLET PO SCH ×3 (08:53→20:35)
[2016-07-22] MEDS: ASPIRIN (UNCOATED) 325 MG TABLET PO SCH (08:53)
[2016-07-22] MEDS: SENNOSIDES 8.6 MG TABLET PO SCH ×2 (08:53→22:00)
[2016-07-22] MEDS: PREDNISONE 1 MG TABLET PO SCH (08:53)
[2016-07-22] MEDS: LOVASTATIN 20 MG TABLET PO SCH (08:53)
[2016-07-22] MEDS: PANTOPRAZOLE 40 MG TABLET DR PO SCH (08:53)
[2016-07-22] MEDS: DOCUSATE SODIUM 100 MG CAPSULE PO SCH ×2 (08:53→22:00)
[2016-07-22] MEDS: SODIUM CHLORIDE 1 G TABLET PO SCH ×2 (09:46→20:35)
[2016-07-22 16:50] LABS: CALCIUM 7.8 mg/dL (8.6-10.3)
[2016-07-22] MEDS: ENOXAPARIN SODIUM 30 MG/0.3 ML SYRINGE SUB-Q SCH (20:31)
[2016-07-22] MEDS: LATANOPROST 0.005% 50 GTTS/2.5 ML BOT SOLN.DROP OU SCH (21:23)
[2016-07-22] MEDS: POLYETHYLENE GLYCOL 3350 17 G POWD.SUSP PO SCH (22:00)
[2016-07-23 08:39] LABS: CALCIUM 7.8 mg/dL (8.6-10.3); MAGNESIUM 2.1 mg/dL (1.9-2.7)
[2016-07-23] MEDS: PANTOPRAZOLE 40 MG TABLET DR PO SCH (08:54)
[2016-07-23] MEDS: DOCUSATE SODIUM 100 MG CAPSULE PO SCH ×2 (08:54→21:27)
[2016-07-23] MEDS: FUROSEMIDE 40 MG/4 ML VIAL IV SCH ×2 (08:55→16:16)
[2016-07-23] MEDS: SODIUM CHLORIDE 1 G TABLET PO SCH (08:55)
[2016-07-23] MEDS: ACETAMINOPHEN 325 MG TABLET PO SCH ×3 (08:55→21:28)
[2016-07-23] MEDS: SENNOSIDES 8.6 MG TABLET PO SCH ×2 (08:55→21:28)
[2016-07-23] MEDS: ASPIRIN (ENTERIC COATED) 325 MG TABLET.EC PO SCH (08:55)
[2016-07-23] MEDS: PREDNISONE 1 MG TABLET PO SCH (08:56)
[2016-07-23] MEDS: LOVASTATIN 20 MG TABLET PO SCH (09:07)
[2016-07-23] MEDS ORDERED: LATANOPROST 0.005% 50 GTTS/2.5 ML BOT SOLN.DROP OU SCH (10:45)
[2016-07-23] MEDS ORDERED: DILTIAZEM HCL IV ONE (11:28)
[2016-07-23] MEDS ORDERED: [UNRECOGNIZED DRUG - OTHER] IV ONE (11:28)
[2016-07-23 13:31] LABS: CALCIUM 7.8 mg/dL (8.6-10.3)
[2016-07-23] MEDS ORDERED: POTASSIUM CHLORIDE 40 MEQ in D5W 1,000 ML IV SCH (14:30)
[2016-07-23] MEDS ORDERED: PUMP TUBING ONE (14:59)
[2016-07-23] MEDS: Potassium Chloride ORAL SOLN 20 MEQ/15 ML UDCUP PO SCH ×2 (15:04→21:41)
[2016-07-23 19:01] VITALS: BP 136/70
[2016-07-23] MEDS ORDERED: POLYVINYL ALCOHOL 1.4% (TEARS) 300 GTTS/BOT SOLN.DROP OU PRN (20:57)
[2016-07-23] MEDS ORDERED: MORPHINE SULF Oral Liquid 20 MG/1 ML DOSE PO PRN (20:57)
[2016-07-23] MEDS ORDERED: ACETAMINOPHEN 650 MG SUP PR PRN (20:57)
[2016-07-23] MEDS ORDERED: ACETAMINOPHEN 325 MG TABLET PO PRN (20:57)
[2016-07-23] MEDS ORDERED: MAG HYDROX/AL HYDROX/SIMETH 30 ML UDCUP PO PRN (20:57)
[2016-07-23] MEDS ORDERED: CARVEDILOL 3.125 MG TABLET PO SCH (21:00)
[2016-07-23] MEDS: POLYETHYLENE GLYCOL 3350 17 G POWD.SUSP PO SCH (21:27)
[2016-07-23] MEDS: ENOXAPARIN SODIUM 30 MG/0.3 ML SYRINGE SUB-Q SCH (21:40)
[2016-07-24] MEDS: LATANOPROST 0.005% 50 GTTS/2.5 ML BOT SOLN.DROP OU SCH ×2 (00:02→00:18)
[2016-07-24] MEDS: MIRTAZAPINE 15 MG TABLET PO SCH ×2 (00:02→00:18)
[2016-07-24] MEDS: SENNOSIDES 8.6 MG TABLET PO SCH (08:17)
[2016-07-24] MEDS: DOCUSATE SODIUM 100 MG CAPSULE PO SCH (08:17)
[2016-07-24] MEDS: ACETAMINOPHEN 325 MG TABLET PO SCH ×2 (08:38→15:06)
[2016-07-24] MEDS: PREDNISONE 1 MG TABLET PO SCH (08:38)
[2016-07-24] MEDS: ASPIRIN (ENTERIC COATED) 325 MG TABLET.EC PO SCH (08:38)
[2016-07-24] MEDS: PANTOPRAZOLE 40 MG TABLET DR PO SCH (08:38)
[2016-07-24] MEDS: FUROSEMIDE 40 MG TABLET PO SCH ×2 (08:38→15:06)
[2016-07-24] MEDS ORDERED: Potassium Chloride ORAL SOLN 20 MEQ/15 ML UDCUP PO SCH (09:00)
--- NOTE | 2016-07-24 10:34 | PDOC43 ---
- Subjective Chief Complaint: dyspnea Subjective: Reports Shortness of Breath (persists, but hypoxemia improving), Denies Adequate Oral Intake, Denies Chest Pain, Denies Fever - Objective Vital Signs Temperature 97.9 F 07/23/16 07:00 Pulse Rate 79 07/23/16 11:00 Respiratory Rate 14 07/23/16 11:00 Blood Pressure 117/62 07/23/16 11:00 O2 Saturation by Pulse Oximetry 95 07/23/16 11:00 Oxygen Delivery Method Nasal Cannula Oxygen Flow Rate 1 Intake and Output 07/22/16 07/23/16 07/24/16 06:59 06:59 06:59 Intake Total 1215 602 Output Total 775 1760 Balance 440 -1158 General: Alert, Moderate Distress HEENT: Mucous membr. moist/pink Lungs: Diminished at Bases (with bibasilar crackles) Cardiovascular: Regular Rate and Rhythm Abdomen: Soft, Normal Bowel Sounds, Non-Distended, No Tenderness Extremities: Edema (in ankles, trace to one plus) Skin: Warm, Dry, Intact Laboratory 07/22/16 05:15 07/23/16 05:15 07/23/16 07/22/16 05:15 16:25 BUN 35 H 41 H Estimated GFR 39 L 30 L Calcium 7.8 L 7.8 L Current Medications: Current meds reviewed in EMR. - Problems: Assessment/Plan (1) CHF (congestive heart failure) Qualifiers: Congestive heart failure type: diastolic Congestive heart failure chronicity: acute Qualifier Code: (I50.31) Acute diastolic (congestive) heart failure Status: Acute Assessment/Plan: associated with NSTEMI on admit, last LVEF was 70%, ECHO shows drop in LVEF to 35% with some septal akinesis/hypokinesis, mod-severe tricuspid regurg, moderate mitral regurg and grade 4 diastolic dysfunction with elevated pulm artery pressures, improving with Bipap and Lasix, last cath showed nonobstructive disease-manage medically (2) Hypertensive urgency Status: Acute Assessment/Plan: on admit associated with flash pulmonary edema and acute diastolic CHF - initially improved with NTG drip now managed with Lasix only (3) Acute respiratory failure Qualifiers: Respiratory failure complication: hypoxia Qualifier Code: (J96.01) Acute respiratory failure with hypoxia Status: Acute Assessment/Plan: present on admit due to pulm edema, improved with Bipap-off Bipap>24hrs, change status (4) Hyponatremia Status: Acute Assessment/Plan: chronic, markedly worse over past week, associated with fluid overload, CHF and acute renal failure, D/W nephrology, fluid restricting but poor PO intake so has not had any effect, diuresing, added salt tablets on 07/22 and Na up to 123 after to doses of oral salt tabs-held NaCl this am, follow closely, resume sodium chloride this PM if not increasing too rapidly, remove fluid restriction (5) CHAYO (acute kidney injury) Status: Acute Assessment/Plan: Cr was 0.8 on 07/17, up to 1.8 on admit, now 1.3 after diuresis (6) Hyperkalemia Status: Resolved Assessment/Plan: improved from 5.6, likely due to acute kidney injury (7) Neurogenic bladder Status: Chronic Assessment/Plan: chronic with indwelling castaneda catheter (8) Pacemaker Status: Chronic Assessment/Plan: due to SSS-functioning well (9) Bullous pemphigoid Status: Chronic Assessment/Plan: on chronic low dose prednisone (10) CAD (coronary artery disease) Qualifiers: Coronary Disease-Associated Artery/Lesion type: [place] artery [place] vs. 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/Plan: of right kidney worrisome for malignancy followed by Dr Kaur but never biopsied (12) Compression fracture of L2 lumbar vertebra Status: Chronic Assessment/Plan: subacute with pain on [place] (13) Depressed affect Status: Acute Assessment/Plan: has excibited hopelessness and desire to at times, has poor appetite, family wants more aggressive care than vocalized by patient but they are willing to honor POLST-trial of Remeron (14) Malnutrition of moderate degree Status: Acute Assessment/Plan: very poor intake in last 2 weeks with markedly reduced subcut fat, muscle wasting and worsening weakness-ST ordered due to concerns about swallowing safety VTE Prophylaxis: Lovenox Disposition: transition to Med/Surg status today, may benefit from SNF stay if participates with therapies and is able to eat versus hospice with comfort care if not
--- NOTE | 2016-07-24 11:40 | DS ---
Nat Bojorquez [id number] DATE OF ADMISSION: July 21, 2016 DATE OF DISCHARGE: July 24, 2016 DISCHARGE DIAGNOSES: 1. Acute systolic and diastolic congestive heart failure associated with an acute non-ST segment elevation myocardial infarction. 2. Severe tricuspid regurgitation. 3. Moderate to severe mitral regurgitation. 4. Acute kidney injury. 5. Marked hyponatremia. 6. Hyperkalemia. 7. Moderate to severe acute malnutrition. 8. Severe weakness. 9. Persistent atrial fibrillation. 10. Chronic bullous phemphigoid. 11. Adult failure to thrive. 12. Generalized osteoporosis. 13. Chronic neurogenic bladder with a chronic indwelling Harrison catheter. 14. 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 15. Acute hypoxic respiratory failure. 16. Malignant hypertension with congestive heart failure. TO SUMMARIZE THE ADMISSION AND HOSPITAL COURSE: The patient is an 86-year-old female recently hospitalized and transferred to [facility] for pain management of an L2 compression fracture who developed acute onset shortness of breath symptoms and was transported immediately to [facility] where she was in acute respiratory failure. She also was noted to have severe hypertension in the emergency department along with flash pulmonary edema and was managed with a nitroglycerin drip and Bi-PAP. Workup showed hyponatremia with a sodium level of 117, acute kidney injury with a creatinine elevated at 1.8. EKG showed no ST-elevation and paced rhythm. Troponin was elevated at 0.51. CBC was normal at 9.2. Lactate was 1.7. Venous pH was 7.32 consistent with respiratory acidosis. She was admitted to the hospitalist service and placed in the intensive care unit on a nitroglycerin drip and Bi-PAP. She had hyperkalemia initially at 5.6. She was diuresed aggressively and her potassium elevation improved into the normal range. She had gradually downward trending troponin levels. She remained afebrile throughout her stay. Her chest x-ray was consistent with pulmonary edema. On July 23 she underwent an echocardiography showing reduced ejection fraction of 35% with anteroseptal hypokinesis, moderate mitral regurgitation, and severe tricuspid regurgitation was noted. Grade IV diastolic dysfunction was event. Her hospital course was notable for improvement in her sodium levels gradually overnight. Between July 22 and July 23 her sodium went from 116 to 123. Her creatinine also improved from 1.6 to 1.3, this was with diuresis and with salt tablets. Because of the rapid improvement in her sodium and concerns for increasing to rapidly follow up sodium level was 125 at 1:00 and she was started D5W with potassium replacement as her potassium had dropped to 3.2. Throughout her stay she was noted to repeatedly ask for pill and stated she did not want further treatment over and over to the staff. She was refusing to eat and had minimal oral intake despite encouragement by her family. We had a long family meeting on the evening of July 23, discussed my concerns about her prognosis and her wishes and that we may be violating wishes by continuing to aggressively treat her. Recommended comfort care measures with avoiding further lab draws and avoiding further hospitalizations. She underwent a speech therapy evaluation on the evening of July 23 and was felt to be not safe to swallow any textures. Given the fact that the patient was unsafe to swallow and was not interested in eating or drinking I felt that hospice was the most appropriate course of action and the family agreed. On July 24 after meeting further with the family they determined to pursue hospice under [facility] level of care. Arrangements were made for the patient to be discharged. PHYSICAL EXAMINATION: VITALS: At discharge showed a temperature when last checked of 97.6, pulse 78, blood pressure 136/70, respirations 16, oxygen saturation 94% on 1 liter by nasal cannula. Her body mass index is 19.7 with a weight of 48.8 kg. GENERAL: This is a cachectic appearing elderly female in mild respiratory distress. HEENT: Shows moist pink oral mucosa. LUNGS: Reveal diminished breath sounds at the bases with some crackles. CARDIOVASCULAR: Reveals a regular rate and rhythm without a murmur. ABDOMEN: Soft, nontender, nondistended with positive bowel sounds. EXTREMITIES: Show trace to 1+ pitting edema of the ankles. LABORATORY STUDIES: Most recent laboratory studies included a CBC on July 22 showing a white count of 6.8, hemoglobin of 12.9, platelet count of 175,000. Chemistry profile on July 23 showed a sodium of 125, potassium 3.2, BUN 30, creatinine 1.2. Further laboratory studies have not been obtained due to desire for comfort care. DISPOSITION: [facility] She [facility] be en[facility] in [facility] after discharge. CODE STATUS: Changed to do not resuscitate with comfort care measures. PROGNOSIS: Terminal. DIET: As desired for comfort. Recommend soft mechanical. ALLERGIES: She has no known drug allergies. DISCHARGE MEDICATIONS: Will include: 1. Senna 17.2 mg twice daily. 2. Prednisone 1 mg by mouth daily. 3. Prilosec 20 mg by mouth daily. 4. Xalatan 0.005% eye drops, two drops in each eye at bedtime. 5. Fluocinonide 0.05% ointment one application topically twice daily as needed for her skin condition. 6. Dulcolax 10 mg suppository daily as needed for no bowel movement in three days. 7. Tylenol 650 mg every 4 hours as needed for mild to moderate pain,, 325 mg of Tylenol scheduled three times daily. 8. Potassium chloride 20 mEq once daily in elixir form. 9. Natural tears 2 drops in each eye four times daily as needed for dry eyes. 10. MiraLax 17 gm by mouth at bedtime. 11. Zofran orally dissolving tablets 4 mg every 6 hours as needed for nausea. 12. Roxanol 20mg/1mL 5 to 20 mg every hour as needed for pain. 13. Remeron 7.5 mg at bedtime. 14. Ativan 0.25 to 2 mg by mouth or sublingual every 4 hours as needed for anxiety, insomnia, or mild nausea. 15. Levsin 0.125 mg sublingual every 3 hours as needed for excessive oral secretions. 16. Lasix 40 mg by mouth twice daily at 9:00 a.m. and 1600. 17. Coreg 3.125 mg by mouth twice daily. 18. Enteric coated aspirin 325 mg by mouth daily. JOB: [id number] CC: Dr. Rodrigo Woods
== END 2016-07-24 16:25 | DRG 189 ==
LOC: ED 14:14 → ICU 16:35
PROVIDERS: ADMIT Family Medicine; ATTEND Family Medicine
DX: J96.01 Acute respiratory failure with hypoxia (principal); I50.41 Acute combined systolic (congestive) and diastolic (congestive) heart failure; I21.4 Non-ST elevation (NSTEMI) myocardial infarction; E43 Unspecified severe protein-calorie malnutrition; J90 Pleural effusion, not elsewhere classified; N17.9 Acute kidney failure, unspecified; E87.1 Hypo-osmolality and hyponatremia; I11.0 Hypertensive heart disease with heart failure; I48.91 Unspecified atrial fibrillation; E87.5 Hyperkalemia; I07.1 Rheumatic tricuspid insufficiency; I34.0 Nonrheumatic mitral (valve) insufficiency; R62.7 Adult failure to thrive; M81.0 Age-related osteoporosis without current pathological fracture